=== PATIENT | female | born 1990 | race Two or more races ===

== ENCOUNTER 2017-11-07 11:27 | Emergency (ER) | payer SELFPAY ==
[~2017-11-07] VITALS: Ht 177.8 cm; Wt 63.5 kg
[2017-11-07 11:43] VITALS: BP 117/74
[2017-11-07] MEDS ORDERED: KEFLEX500 MG ORAL (12:11)
[2017-11-07] MEDS ORDERED: CLOBETASOL EMOL15 GM TP (12:32)
--- NOTE | 2017-11-07 15:49 | Emergency Room Report ---
History of Present Illness General Chief Complaint: Skin Rash/Abscess Source: Patient Present Illness HPI Is a 27-year-old female who presented after increased rash to her lower extremities. Patient reports having used Tea tree oil. She reports having increased pain without any fever she reports having recently had legs wax. She reports having a dog but states he does not have any fleas. Prior history of eczema.Patient gradual onset of symptoms in the past few days Patient History Past Medical History: see triage record Last Menstrual Period: 10/30/17 Now: No : 0 Reviewed Nursing Documentation: PMH: Agreed, PSxH: Agreed Nursing Documentation-PMH Past Medical History: No Stated History Review of Systems All Other Systems: negative except mentioned in HPI Physical Exam Vital Signs Date Time Temp Pulse Resp B/P (MAP) Pulse Ox O2 Delivery O2 Flow Rate FiO2 11/07/17 11:30 98.4 64 18 117/74 96 Room Air 98.4 General Appearance: normal inspection, no apparent distress, alert, GCS 15 ENT: hearing grossly normal Neck: full range of motion Respiratory: lungs clear, normal breath sounds Cardiovascular #1: normal inspection Gastrointestinal: normal inspection Neurologic: normal inspection, alert, oriented x3, responsive Psychiatric: normal inspection, judgement/insight normal Skin: other - bilateral lower extremity pustules, left greater than right Medical Decision Making Diagnostic Impression: Primary Impression: Folliculitis Additional Impression: Eczema ER Course Patient presented for skin rash. Differential diagnosis included was not limited to folliculitis, Hyman-Epifanio syndrome, urticaria, erythema multiforme, contact dermatitis. Patient's benign exam and does not appear to require any further imaging or laboratory testing at this time.patient was given prescription for antibiotics but appears to be a folliculitis. The patient is advised to follow up with primary care doctor in 1-2 days. Patient is advised to return if any worsening condition or if any changes in status that are concerning. This report is dictated with legalPAD mh teacher software which may occasionally lead to discrepancies related to use of this software. Last Vital Signs Date Time Temp Pulse Resp B/P (MAP) Pulse Ox O2 Delivery O2 Flow Rate FiO2 11/07/17 12:27 98.4 76 18 117/74 96 Room Air 98.4 Status: improved Disposition: HOME, SELF-CARE Condition: Stable Scripts Clobetasol Propionate/Emoll (CLOBETASOL EMOLLIENT 0.05% CRM) 15 Gm Cream..g. 15 GM TP DAILY, #15 GM Prov: Stephen Olvera 11/07/17 Cephalexin* (KEFLEX*) 500 Mg Capsule 500 MG ORAL Q6H, #28 CAP 0 Refills Prov: Stephen Olvera 11/07/17 Referrals: NOT CHOSEN IPA/MD,REFERRING (PCP) Patient Instructions: Folliculitis Stephen Olvera Nov 07, 2017 15:49
== END 2017-11-07 12:28 | disposition home or self-care (01) ==
LOC: EMR 12:09
DX: L73.9 Follicular disorder, unspecified (principal); L30.9 Dermatitis, unspecified
CPT/HCPCS: 99283